=== PATIENT | female | born 1965 | race Caucasian/White ===

== ENCOUNTER 2019-02-03 20:32 | Emergency (ER) | payer OTHER ==
[~2019-02-03] VITALS: Ht 167.6 cm; Wt 113.4 kg
[2019-02-03 20:39] VITALS: BP 129/92
--- NOTE | 2019-02-03 20:41 | NUR ---
PT AMBULATED TO LOBBY.
--- NOTE | 2019-02-03 21:17 | NUR ---
PT AMBULATED TO ER BED 12
[2019-02-03] MEDS ORDERED: NACL 0.9% 1,000 ML IV ONE (21:45)
[2019-02-03] MEDS ORDERED: diphenhydrAMINE 50 MG/ML VIAL IVP ONE (21:45)
[2019-02-03] MEDS ORDERED: METOCLOPRAMIDE 10 MG/2 ML INJ VIAL IVP ONE (21:45)
--- NOTE | 2019-02-03 21:50 | NUR ---
PATIENT LEFT WITHOUT BEING SEEN BY DR. POPE. NO FURTHER CARE PROVIDED FOR PATIENT.
== END 2019-02-03 21:50 | disposition left against medical advice (07) ==
LOC: MED 20:32
DX: Z53.20 Procedure and treatment not carried out because of patient's decision for unspecified reasons (principal); R51 Headache
CPT/HCPCS: J1200; J2765

== ENCOUNTER 2019-07-29 13:37 | Emergency (ER) | payer OTHER ==
[~2019-07-29] VITALS: Ht 167.6 cm; Wt 111.6 kg
[2019-07-29 14:00] VITALS: BP 150/90
--- NOTE | 2019-07-29 14:18 | NUR ---
PATIENT AMBULATED WITH ASSISTANCE TO BED 6.
--- NOTE | 2019-07-29 14:29 | NUR ---
DR. POPE AT BEDSIDE EVALUATING PATIENT.
--- NOTE | 2019-07-29 14:34 | NUR ---
CODE BRAIN INITIATED. SPOKE TO FILEMON IN RADIOLOGY.
[2019-07-29] MEDS ORDERED: NACL 0.9% 1,000 ML IV ONE (14:40)
--- NOTE | 2019-07-29 14:43 | NUR ---
PT TO BE PLACED IN BED [address]
--- NOTE | 2019-07-29 14:45 | NUR ---
PT STATES RAC IV HAS PAIN WITH CONTRAST BEING ADMINISTERED. ANOTHER IV INSERTED INTO PTS R AC
--- NOTE | 2019-07-29 15:15 | NUR ---
Called and spoke to Candace for CT read on patient. Explained to Candace that patient was still in CT for other exams but Dr. Cervantes wanted CT read first for patient who is possibly a stroke. Candace stated the test was already stat and that it "should be read soon."
--- NOTE | 2019-07-29 15:24 | NUR ---
Called and spoke to Dr. La from [place] per Dr. Cervantes request. Dr. La speaking with Dr. Cervantes about CT scan.
--- NOTE | 2019-07-29 15:24 | NUR ---
Pt back from CT scan.
--- NOTE | 2019-07-29 15:30 | NUR ---
XRAY AT BEDSIDE
--- NOTE | 2019-07-29 15:31 | NUR ---
53 Y/O FEMALE PRESENTED WITH C/C OF CHEST PAIN / STROKE SYMPTOMS. NEURO ASSESSMENT LEFT SIDED WEAKNESS WITH SLIGHT LOSS OF SENSATION IN CONJUNCTION WITH LEFT FACIAL DROOP. PT PRESENTS WITH NO SLURRED SPEECH. PUPILS AT 3MM BRISK AND REACTIVE TO LIGHT; STRENGTH NOTED ON LEFT SIDE LUE/LLE 3/5 COMPARED TO RIGHT SIDE RUE/RLE 4/5. NO VISION LOSS. PT A/OX4. RESP WDL. SLIGHT TACHY WITH CHEST PAIN 6/10 PRESSURE LIKE SENSATION. MEDICAL HX OF DM, HYSTERECTOMY, STROKE (TIA) A YR AGO, ASTHMA. DENIES ANY HEART PROBLEMS. SIDE RAIL X1.
--- NOTE | 2019-07-29 15:32 | NUR ---
PT STATES SHE TAKES NUMEROUS MEDICATIONS INCLUDING METHOTRIXATE, METFORMIN, AND ASPIRIN 81 MG BUT CAN NOT RECALL THE OTHER NAMES
--- NOTE | 2019-07-29 15:35 | NUR ---
GLUCOSE 311 FROM BLOOD DRAW
--- NOTE | 2019-07-29 15:40 | NUR ---
RR 21. PT CONTINUES TO BE TACHY AT 111 BPM
[2019-07-29 15:46] LABS: BASOPHILS # (AUTO) 0.1 K/uL (0.00-0.22); BASOPHILS % (AUTO) 1.1 % (0.0-2.0); EOSINOPHILS # (AUTO) 0.3 K/uL (0-0.4); EOSINOPHILS % (AUTO) 5.5 % (0.0-4.0); HEMATOCRIT 41.4 % (36-48); HEMOGLOBIN 13.9 g/dL (12.0-16.0); LYMPHOCYTES # (AUTO) 1.6 K/uL (2.5-16.5); LYMPHOCYTES % (AUTO) 26.8 % (20.5-51.1); MEAN CORPUSCULAR HEMOGLOBIN 30 pg (27-31); MEAN CORPUSCULAR HGB CONC 34 g/dL (33-37); MEAN CORPUSCULAR VOLUME 90.3 fL (80-94); MONOCYTES # (AUTO) 0.4 K/uL (0.8-1.0); MONOCYTES % (AUTO) 6.5 % (1.7-9.3); NEUTROPHILS # (AUTO) 3.7 K/uL (1.8-7.7); NEUTROPHILS % (AUTO) 60.1 % (42.2-75.2); PLATELET COUNT (AUTO) 169 K/uL (140-450); RED BLOOD CELL COUNT(AUTO) 4.58 MIL/uL (4.20-5.40); RED CELL DISTRIBUTION WIDTH 12.8 % (11.6-13.7); WHITE BLOOD COUNT (AUTO) 6.1 K/uL (4.8-10.8)
--- NOTE | 2019-07-29 15:56 | NUR ---
FAMILY AT BEDSIDE
[2019-07-29 16:10] LABS: ANION GAP 14.5 (8-16); CARBON DIOXIDE 26.5 mmol/L (21-32); PROTHROMBIN TIME 9.3 secs (10.8-13.4)
[2019-07-29 16:13] LABS: ALBUMIN 3.5 g/dL (3.4-5.0); TOTAL BILIRUBIN 0.4 mg/dL (0.0-1.0)
[2019-07-29] MEDS ORDERED: ONDANSETRON 4 MG/2 ML VIAL IVP ONE (16:15)
[2019-07-29] MEDS ORDERED: MORPHINE SULFATE 4 MG/ML SYR IVP ONE (16:20)
--- NOTE | 2019-07-29 16:34 | NUR ---
ZOFRAN AND MORPHINE TO BE ADMINISTERED. PTS PAIN 06/16. VITALS TAKEN
--- NOTE | 2019-07-29 16:53 | NUR ---
INSTRUCTED PT THAT SHE CAN NOT TAKE METFORMIN FOR X 2 DAYS DUE TO IV CONTRAST DYE
--- NOTE | 2019-07-29 17:08 | NUR ---
PT HAS SIGNED CONSENT FORM FOR TRANSFER TO [facility]
--- NOTE | 2019-07-29 17:24 | NUR ---
ETA FOR TRANSPORT IS 1800
--- NOTE | 2019-07-29 17:30 | NUR ---
PT STILL TACHY AT 102. AFEBRILE. ALERT AND AWAKE.
--- NOTE | 2019-07-29 17:38 | NUR ---
Patient to be transferred to [facility]. Is being transferred due to HIGH LEVEL OF CARE. Receiving facility has accepting physician and available space. ER physician has signed transfer form. Patient or responsible green party has agreed to transfer and signed form. Patient belongings inventoried and will be sent with patient. Copy of nursing notes, lab reports, EKG, Physicians Orders and X-rays to be sent with patient. Report called to ANH CHARGE NURSE at receiving facility. ambulance service has been called for transfer. SERVER SUPPORT TECHNICIAN TIME 1800HRS.
--- NOTE | 2019-07-29 17:46 | NUR ---
ACCU CHECK 255
--- NOTE | 2019-07-29 17:50 | NUR ---
PT WHEELCHAIR ASSISTED TO RESTROOM. PT INSTRUCTED TO PULL CORD IN RESTRROM IF ASSISTANCE REQUIRED
--- NOTE | 2019-07-29 18:27 | NUR ---
ETA IS NOW 1900
--- NOTE | 2019-07-29 18:59 | NUR ---
REPORT GIVEN TO ACLS UNIT 162.
[2019-07-29 19:39] VITALS: BP 113/68
--- NOTE | 2019-07-29 19:41 | NUR ---
Patient to be transferred to [facility]. Is being transferred due to HIGHER LEVEL OF CARE. Receiving facility has accepting physician and available space. ER physician has signed transfer form. Patient or responsible libertarian has agreed to transfer and signed form. Patient belongings inventoried and will be sent with patient. Copy of nursing notes, lab reports, EKG, Physicians Orders and X-rays to be sent with patient. Report called to CLARY KAMARA CHARGE at receiving facility. [facility] ambulance service has been called for transfer. CLOTH SHRINKER ETA 1800 HRS.
== END 2019-07-29 19:41 | disposition short-term general hospital (02) ==
LOC: MED 13:37
DX: R29.810 Facial weakness (principal); R51 Headache; M19.90 Unspecified osteoarthritis, unspecified site; E11.9 Type 2 diabetes mellitus without complications; Z98.890 Other specified postprocedural states; Z86.73 Personal history of transient ischemic attack (TIA), and cerebral infarction without residual deficits; Z88.8 Allergy status to other drugs, medicaments and biological substances
CPT/HCPCS: 36415; 70450; 70496; 70498; 71045; 80053; 83880; 84484; 84702; 85025; 85610; 85730; 93005; 96374; 96375; 99285; J2270; J2405; Q0092; J7030

== ENCOUNTER 2019-10-22 17:33 | Emergency (ER) | payer OTHER ==
[~2019-10-22] VITALS: Ht 167.6 cm; Wt 103.6 kg
[2019-10-22 17:41] VITALS: BP 126/94
--- NOTE | 2019-10-22 17:43 | NUR ---
AMBULATES TO BED 3
[2019-10-22] MEDS ORDERED: PROCHLORPERAZINE 10 MG/2 ML VIAL IM ONE (17:55)
--- NOTE | 2019-10-22 17:55 | NUR ---
PT C/O PRODUCTIVE COUGH W/ YELLOWISH PHLEGM, SOB X 3 DAYS, SORE THROAT TODAY, DIFFICULTY SLEEPING AT NIGHT. PATIENT STATES PAIN OF 5/10 AT THIS TIME; VSS; PATIENT POSITIONED FOR COMFORT; HOB ELEVATED; BEDRAILS UP X1; BED DOWN. ER MD MADE AWARE OF PT STATUS.
--- NOTE | 2019-10-22 18:02 | NUR ---
XRAY IS AT BEDSIDE.
[2019-10-22 19:14] VITALS: BP 125/85
--- NOTE | 2019-10-22 19:14 | NUR ---
Patient discharged with v/s stable. Written and verbal after care instructions given and explained. Patient alert, oriented and verbalized understanding of instructions. Ambulatory with steady gait. All questions addressed prior to discharge. ID band removed. Patient advised to follow up with PMD. Rx of Tessalon Perles, Capacol, and Tylenol given. Patient educated on indication of medication including possible reaction and side effects. Opportunity to ask questions provided and answered.
== END 2019-10-22 19:14 | disposition home or self-care (01) ==
LOC: MED 17:33
DX: J10.1 Influenza due to other identified influenza virus with other respiratory manifestations (principal); E11.9 Type 2 diabetes mellitus without complications; Z86.73 Personal history of transient ischemic attack (TIA), and cerebral infarction without residual deficits; Z88.4 Allergy status to anesthetic agent
CPT/HCPCS: 71045; 82948; 87804; 96372; 99284; J0780; Q0092; Q0163